=== PATIENT | male | born 1945 | race African-American/Black ===

== ENCOUNTER → 2020-11-27 | Outpatient (CLI) | payer OTHER ==
--- NOTE | 2020-11-27 14:32 | 2DMMODE ---
[place] [address] 2 D/M-MODE ECHOCARDIOGRAM Name: ROLANDO MENCHACA Room: [facility]#: [id number] Admission: 11/27/20 Attend Phys: Kashmir Corley Discharge: Date of : 47 Date of Service: 11/27/20 1431 Report #: [id number] THIS REPORT FOR: cc: FAM - No family physician/PCP FAM - No family physician/PCP Arnold Beltrán MD [facility] ~ APPROVED REPORT Study performed: 11/27/2020 11:01:05 EXAM: Comprehensive 2D, Doppler, and color-flow Echocardiogram Patient Location: Out-Patient BSA: 2.13 HR: 67 bpm BP: 142/78 mmHg Other Information Study Quality: Good Indications CAD 2D Dimensions IVSd: 12.88 (7-11mm) LVOT Diam: 20.73 (18-24mm) LVDd: 50.32 mm PWd: 11.67 (7-11mm) Ascending Ao: 33.91 (22-36mm) LVDs: 37.68 (25-40mm) Aortic Root: 37.30 mm Volumes Left Atrial Volume (Systole) LA ESV Index: 21.40 mL/m2 Aortic Valve AoV Peak Remy.: 1.26 m/s AO Peak Gr.: 6.34 mmHg LVOT Max P.66 mmHg AO Mean Gr.: 3.13 mmHg LVOT Mean P.79 mmHg LVOT Max V: 0.96 m/s AO V2 VTI: 24.68 cm LVOT Mean V: 0.61 m/s TYLER (VTI): 2.83 cm2 LVOT V1 VTI: 20.68 cm Mitral Valve E/A Ratio: 0.59 [place] [address] 2 D/M-MODE ECHOCARDIOGRAM Name: ROLANDO MENCHACA Room: [facility]#: [id number] Admission: 11/27/20 Attend Phys: Kashmir Corley Discharge: Date of : 47 Date of Service: 11/27/20 1431 Report #: [id number] MV Decel. Time: 240.35 ms MV E Max Remy.: 0.47 m/s MV PHT: 69.70 ms MVA (PHT): 3.16 cm2 TDI E/Lateral E': 4.70 E/Medial E': 7.83 Medial E' Remy.: 0.06 m/s Lateral E' Remy.: 0.10 m/s Pulmonary Valve PV Peak Remy.: 0.93 m/s PV Peak Gr.: 3.43 mmHg Tricuspid Valve RAP Estimate: 5.00 mmHg TR Peak Gr.: 24.14 mmHg RVSP: 29.14 mmHg PA Pressure: 29.14 mmHg Left Ventricle The left ventricle is normal size. There is normal LV segmental wall motion. Mild concentric left ventricular hypertrophy. Left ventricular systolic function is borderline. LVEF is 50-55%. Grade I - abnormal relaxation pattern. Right Ventricle The right ventricle is normal size. The right ventricular systolic function is normal. Atria The left atrium size is normal. The right atrium size is normal. Aortic Valve The aortic valve is normal in structure. No aortic regurgitation is present. There is no aortic valvular stenosis. Mitral Valve The mitral valve is normal in structure. Mild mitral regurgitation. No evidence of mitral valve stenosis. Tricuspid Valve The tricuspid valve is normal in structure. Mild tricuspid regurgitation. Pulmonic Valve The pulmonary valve is normal in structure. [place] [address] 2 D/M-MODE ECHOCARDIOGRAM Name: BERNARDAROLANDO [id number] Admission: 11/27/20 Attend Phys: Kashmir Corley Discharge: Date of : 47 Date of Service: 11/27/20 1431 Report #: [id number] valvular regurgitation. Great Vessels The aortic root is normal in size. The inferior vena cava is not well visualized. Pericardium There is no pericardial effusion. <Conclusion> Mild concentric left ventricular hypertrophy. LVEF is 50-55%. Mild mitral regurgitation. <ELECTRONICALLY SIGNED> By: Arnold Beltrán MD, [facility] 11/27/20 143 143 30 Arnold Beltrán MD, [facility] /INF
== END ==
LOC: M.CRD 11:00
PROVIDERS: ATTEND Chiropractor
DX: I08.1 Rheumatic disorders of both mitral and tricuspid valves (principal); I25.10 Atherosclerotic heart disease of native coronary artery without angina pectoris